=== PATIENT | male | born 1950 | race Caucasian/White ===

== ENCOUNTER 2021-07-01 06:48 | Outpatient (CLI) | payer MEDICARE, SELFPAY ==
[2021-07-01 07:34] LABS: Hemoglobin A1C 6.9 % (<5.7)
[2021-07-01 08:45] LABS: LDL Cholesterol Direct 140 mg/dL
[2021-07-01 08:50] LABS: Alanine Aminotransferase 22 U/L (4-50); Albumin Level 4.8 g/dL (3.5-5.1); Alkaline Phosphatase 97 U/L (38-126); Anion Gap 6 mmol/L (8-16); Aspartate Amino Transferase 26 U/L (17-59); Bilirubin,Total 0.9 mg/dL (0.2-1.3); Blood Urea Nitrogen 21 mg/dL (9-20); Calcium 9.5 mg/dL (8.4-10.2); Carbon Dioxide 24 mmol/L (22-30); Chloride 107 mmol/L (98-107); Cholesterol 247 mg/dL (0-200); Estimated Glomerular Filt Rate > 60; HDL Direct 31 mg/dL; Potassium 4.7 mmol/L (3.4-5.0); Sodium 137 mmol/L (137-145); Triglycerides 224 mg/dL (<150)
[2021-07-01 08:51] LABS: Glucose 138 mg/dL (65-110)
[2021-07-01 08:58] LABS: Prostate Specific Antigen 6.4 ng/mL (< OR = 4.0)
== END 2021-07-01 06:49 | disposition home or self-care (01) ==
LOC: ANHLAB 06:53
PROVIDERS: PCP Internal Medicine; Visit Provider Internal Medicine
DX: E11.9 Type 2 diabetes mellitus without complications (principal); I10 Essential (primary) hypertension; E78.5 Hyperlipidemia, unspecified; Z12.5 Encounter for screening for malignant neoplasm of prostate
CPT/HCPCS: 36415; 80053; 80061; 83036; 84153; G0103

== ENCOUNTER 2021-12-31 06:48 | Outpatient (CLI) | payer MEDICARE, SELFPAY ==
[2021-12-31 08:26] LABS: Alanine Aminotransferase 31 U/L (4-50); Albumin Level 4.7 g/dL (3.5-5.1); Alkaline Phosphatase 100 U/L (38-126); Anion Gap 8 mmol/L (8-16); Aspartate Amino Transferase 24 U/L (17-59); Bilirubin,Total 1.1 mg/dL (0.2-1.3); Blood Urea Nitrogen 21 mg/dL (9-20); Calcium 9.1 mg/dL (8.4-10.2); Carbon Dioxide 27 mmol/L (22-30); Chloride 103 mmol/L (98-107); Cholesterol 218 mg/dL (0-200); Estimated Glomerular Filt Rate > 60; Glucose 143 mg/dL (65-110); HDL Direct 31 mg/dL; Sodium 138 mmol/L (137-145); Triglycerides 263 mg/dL (<150)
[2021-12-31 08:36] LABS: LDL Cholesterol Direct 126 mg/dL
[2021-12-31 08:43] LABS: Hemoglobin A1C 6.6 % (<5.7)
== END 2021-12-31 06:49 | disposition home or self-care (01) ==
LOC: ANHLAB 06:49
PROVIDERS: PCP Internal Medicine; Visit Provider Internal Medicine
DX: E11.9 Type 2 diabetes mellitus without complications (principal); I10 Essential (primary) hypertension; E78.5 Hyperlipidemia, unspecified
CPT/HCPCS: 36415; 80053; 80061; 83036

== ENCOUNTER 2022-05-22 06:47 | Outpatient (CLI) | payer MEDICARE, SELFPAY ==
[2022-05-27 20:58] LABS: PSA, Total 6.4 ng/mL (<=4.0); Percent Free Prostate Spec Ag 20 % (>25)
== END 2022-05-22 06:48 | disposition home or self-care (01) ==
LOC: ANHLAB 06:49
PROVIDERS: PCP Internal Medicine; Visit Provider Urology
DX: N40.1 Benign prostatic hyperplasia with lower urinary tract symptoms (principal)
CPT/HCPCS: 36415; 84153; 84154

== ENCOUNTER 2022-07-08 06:46 | Outpatient (CLI) | payer MEDICARE, SELFPAY ==
[2022-07-08 07:51] LABS: Creatinine Urine 210.7 mg/dL
[2022-07-08 07:56] LABS: MALB Creatinine Ratio 26.8 mg/g (0-30); Microalbumin Urine Random 56.5 mg/L (0-16.7)
[2022-07-08 10:28] LABS: Hemoglobin A1C 5.8 % (<5.7)
[2022-07-08 11:35] LABS: Alanine Aminotransferase 26 U/L (6-50); Albumin Level 4.8 g/dL (3.5-5.1); Alkaline Phosphatase 62 U/L (38-126); Anion Gap 15 mmol/L (8-16); Aspartate Amino Transferase 24 U/L (17-59); Blood Urea Nitrogen 17 mg/dL (9-20); Calcium 9.9 mg/dL (8.4-10.2); Carbon Dioxide 22 mmol/L (22-30); Chloride 105 mmol/L (98-107); Cholesterol 277 mg/dL (0-200); Estimated Glomerular Filt Rate > 60; Glucose 103 mg/dL (65-110); HDL Direct 33 mg/dL; Potassium 5.6 mmol/L (3.4-5.0); Sodium 142 mmol/L (137-145); Triglycerides 169 mg/dL (<150)
[2022-07-08 11:47] LABS: LDL Cholesterol Direct 191 mg/dL
[2022-07-08 12:29] LABS: Prostate Specific Antigen 7.2 ng/mL (< OR = 4.0)
== END 2022-07-08 06:47 | disposition home or self-care (01) ==
PROVIDERS: PCP Internal Medicine; Visit Provider Internal Medicine
DX: E78.5 Hyperlipidemia, unspecified (principal); E11.9 Type 2 diabetes mellitus without complications; N40.0 Benign prostatic hyperplasia without lower urinary tract symptoms
CPT/HCPCS: 36415; 80053; 80061; 82043; 83036; 84153

== ENCOUNTER 2023-03-25 06:45 | Outpatient (CLI) | payer MEDICARE, SELFPAY ==
[2023-03-25 07:51] LABS: Alanine Aminotransferase 25 U/L (6-50); Albumin Level 4.8 g/dL (3.5-5.1); Alkaline Phosphatase 68 U/L (38-126); Anion Gap 8 mmol/L (8-16); Aspartate Amino Transferase 24 U/L (17-59); Bilirubin,Total 1.1 mg/dL (0.2-1.3); Blood Urea Nitrogen 27 mg/dL (9-20); Calcium 9.1 mg/dL (8.4-10.2); Carbon Dioxide 26 mmol/L (22-30); Chloride 105 mmol/L (98-107); Cholesterol 260 mg/dL (0-200); Estimated Glomerular Filt Rate > 60; Glucose 120 mg/dL (65-110); HDL Direct 28 mg/dL; Potassium 4.1 mmol/L (3.4-5.0); Sodium 139 mmol/L (137-145); Triglycerides 154 mg/dL (<150)
[2023-03-25 08:02] LABS: LDL Cholesterol Direct 183 mg/dL
[2023-03-25 12:08] LABS: Hemoglobin A1C 5.6 % (<5.7)
== END 2023-03-25 06:46 | disposition home or self-care (01) ==
PROVIDERS: PCP Internal Medicine; Visit Provider Internal Medicine
DX: E11.9 Type 2 diabetes mellitus without complications (principal); I10 Essential (primary) hypertension; E78.5 Hyperlipidemia, unspecified
CPT/HCPCS: 36415; 80053; 80061; 83036

== ENCOUNTER 2023-10-07 06:32 | Outpatient (CLI) | payer MEDICARE, SELFPAY ==
[2023-10-07 09:04] LABS: Hemoglobin A1C 5.9 % (<5.7)
[2023-10-07 09:06] LABS: Alanine Aminotransferase 33 U/L (6-50); Albumin Level 4.8 g/dL (3.5-5.1); Alkaline Phosphatase 74 U/L (38-126); Anion Gap 10 mmol/L (8-16); Aspartate Amino Transferase 26 U/L (17-59); Blood Urea Nitrogen 19 mg/dL (9-20); Calcium 9.5 mg/dL (8.4-10.2); Carbon Dioxide 26 mmol/L (22-30); Chloride 105 mmol/L (98-107); Cholesterol 297 mg/dL (0-200); Estimated Glomerular Filt Rate > 60; Glucose 144 mg/dL (65-110); HDL Direct 32 mg/dL; Potassium 4.1 mmol/L (3.4-5.0); Sodium 141 mmol/L (137-145); Triglycerides 252 mg/dL (<150)
[2023-10-07 09:19] LABS: LDL Cholesterol Direct 178 mg/dL
[2023-10-07 09:33] LABS: Prostate Specific Antigen 6.3 ng/mL (< OR = 4.0)
== END 2023-10-07 06:33 | disposition home or self-care (01) ==
PROVIDERS: PCP Family Medicine; Visit Provider Nurse Practitioner
DX: E78.5 Hyperlipidemia, unspecified (principal); R97.20 Elevated prostate specific antigen [PSA]; E11.9 Type 2 diabetes mellitus without complications
CPT/HCPCS: 36415; 80053; 80061; 83036; 84153

== ENCOUNTER 2024-01-12 03:31 | Day surgery (SDC) | payer MEDICARE, SELFPAY ==
[2023-12-21 09:08] VITALS: BMI 27.6
--- NOTE | 2024-01-08 13:57 | SUR.PREOP ---
Patient called regarding upcoming procedure. Reviewed preop instructions, appointment times, and procedure prep. pt denies any additional questions.
[2024-01-12 06:15] VITALS: BP 156/97; PULSE 92; RESP 16; TEMP 36.3; O2SAT 99; BMI 27.8
[2024-01-12] MEDS: LACTATED RINGERS 1,000 ML 150 ML IV CONT (06:36)
--- NOTE | 2024-01-12 06:51 | WPDANESEPPF ---
Anes - Initial Pre Proc Eval Procedure: Operation Date: 01/12/24 07:30 Proposed Procedures p Screening Colonoscopy - Gary Mata MD Date/Time: 01/12/24 06:51 Surgeon: Gary Mata MD Pre Op Diagnosis: neoplasm screening Patient Data Age: 73 Gender: M Height: 1.88 m Weight: 98.4 kg Last Vital Signs Temp 36.3 C L 01/12/24 06:15 Pulse 92 01/12/24 06:15 Resp 16 01/12/24 06:15 BP 156/97 H 01/12/24 06:15 Pulse Ox 99 01/12/24 06:15 O2 Del Method Room Air 01/12/24 06:15 Allergies Allergy/AdvReac Type Severity Reaction Status Date / Time Antihistamines - Alkylamine Allergy Intermediate Hives Verified 01/12/24 06:25 hydrochlorothiazide Allergy Intermediate Rash Verified 01/12/24 06:25 lisinopril Allergy Intermediate Itching Verified 01/12/24 06:25 losartan Allergy Unknown Itching Verified 01/12/24 06:25 Penicillins Allergy Unknown Rash Verified 01/12/24 06:25 Sulfa (Sulfonamide Allergy Unknown Rash Verified 01/12/24 06:25 Antibiotics) finasteride AdvReac Intermediate SINUS Verified 01/12/24 06:25 ISSUES DIPHENHYDRAMINE HCL Allergy Unknown RASH/HIVES Uncoded 01/12/24 06:25 Home Medications Medication Instructions Recorded Confirmed Type diazepam 5 mg tablet 5 mg PO .complex PRN flying phobia 10/20/23 01/12/24 Rx #10 tabs Patient hx anesthesia problems: none Family hx anesthesia problems: none Results Review: All pre-operative results and documents have been reviewed as part of the pre-operative evaluation. [facility] Surgical History Surgical History (Updated 01/12/24 @ 06:52 by Dustin Simon MD) H/O colonoscopy Family History Family History Mother Hypertension Father Family history of congestive heart failure Patient's father is Sibling Patient's brother is in good health Patient's sister is Other Diabetes mellitus Family history of cardiovascular disease Social History Social History Smoking packs per day: 1 Smoking cigarettes per day: 20.0 Years smoked: 8 Smoking pack-years: 8.00 Smoking status: Former smoker Tobacco type: cigarettes Smoking end date: 11/16/78 Alcohol intake: current Alcohol use details: rare Substance use: never Substance use type: does not use Living arrangements: with family Spiritual care concerns: No Anes - Eval Final PreProcedure Day of Procedure 01/12/24 06:51 Patient weight: overweight Heart: regular rate and rhythm Lungs: clear to auscultation Airway: Mallampati scale class 1 Neurological: alert and oriented Last oral intake: >/= 8 hours ASA classification: II Emergent: no Anesthetic plan: proceed Anesthesia type and monitoring: general GIVS and standard monitoring Results Review: All pre-operative results and documents have been reviewed as part of the pre-operative evaluation. Informed Consent: The patient's anesthetic plan and its attendant risks and benefits were discussed with the patient/family/POA. Questions were solicited and answers provided to the satisfaction of the patient/family/POA.
--- NOTE | 2024-01-12 07:46 | PM.HPGS ---
History of Present Illness History of Present Illness Consent: Risks, benefits, and alternatives have been discussed and questions answered. Patient agrees to proceed with procedure. Chief complaint: neoplasm screening Narrative: Jose Man is a 73 year old male with colon polyp 7 years ago Review of Systems Constitutional: Constitutional: Denies headache(s) and Denies weakness Eyes: Eyes: Denies blurry vision ENT: Reports Normal hearing present, Denies headache(s) and Denies neck pain Cardiovascular: Cardiovascular: Denies chest pain and Denies dyspnea Respiratory: Respiratory: Denies dyspnea Gastrointestinal: Gastrointestinal: Reports no additional gastrointestinal complaints Genitourinary: Genitourinary: Denies dysuria Musculoskeletal: Musculoskeletal: Denies neck pain Integumentary/Breasts: Skin/Breast: Denies dry skin Neurologic: Reports Normal hearing present, Denies headache(s) and Denies weakness Psychiatric: Psychiatric: Denies anxiety Endocrine: Endocrine: Denies change in body appearance Hematologic/Lymphatic: Hematologic/Lymphatic: Denies easy bleeding Allergic/Immunologic: Allergic/Immunologic: Denies urticaria PMFSH Surgical History Surgical History (Updated 01/12/24 @ 06:52 by Dustin Simon MD) H/O colonoscopy Family History Family History Mother Hypertension Father Family history of congestive heart failure Patient's father is Sibling Patient's brother is in good health Patient's sister is Other Diabetes mellitus Family history of cardiovascular disease Social History Social History Smoking packs per day: 1 Smoking cigarettes per day: 20.0 Years smoked: 8 Smoking pack-years: 8.00 Smoking status: Former smoker Tobacco type: cigarettes Smoking end date: 11/16/78 Alcohol intake: current Alcohol use details: rare Substance use: never Substance use type: does not use Living arrangements: with family Spiritual care concerns: No Meds Home Medications and Allergies Home Medications Medication Instructions Recorded Confirmed Type diazepam 5 mg tablet 5 mg PO .complex PRN flying phobia 10/20/23 01/12/24 Rx #10 tabs Allergies Allergy/AdvReac Type Severity Reaction Status Date / Time Antihistamines - Alkylamine Allergy Intermediate Hives Verified 01/12/24 06:25 hydrochlorothiazide Allergy Intermediate Rash Verified 01/12/24 06:25 lisinopril Allergy Intermediate Itching Verified 01/12/24 06:25 losartan Allergy Unknown Itching Verified 01/12/24 06:25 Penicillins Allergy Unknown Rash Verified 01/12/24 06:25 Sulfa (Sulfonamide Allergy Unknown Rash Verified 01/12/24 06:25 Antibiotics) finasteride AdvReac Intermediate SINUS Verified 01/12/24 06:25 ISSUES DIPHENHYDRAMINE HCL Allergy Unknown RASH/HIVES Uncoded 01/12/24 06:25 Vital Signs Vital Signs - 24 hr 01/12/24 06:15 Temperature 97.3 F L Pulse Rate 92 Respiratory Rate 16 Blood Pressure 156/97 H Pulse Oximetry 99 Oxygen Delivery Room Air Exam Const: General: comfortable and no acute distress HENMT: Face/Nose/Sinus: Normal nares present Eyes: General: appearance normal, both eyes and all related structures Neck: Neck: no JVD Resp: Auscultation: clear to auscultation bilaterally Cardio: Rate: regular rate Rhythm: regular rhythm GI: Inspection: non-distended GI Palp: Yes Soft to palpation Skin: General skin exam: normal color Neuro: General: gait normal Speech: normal speech Extrem: General: normal to inspection Psych: Mental Status: mental status grossly normal Assessment and Plan Assessment and plan (1) Screening for colon cancer: Code(s): Z12.11 - Encounter for screening for malignant neoplasm of colon Status: Acute Assessment and Plan: colonoscopy
[2024-01-12 08:11] VITALS: BP 122/75; PULSE 69; RESP 20; O2SAT 99
[2024-01-12 08:21] VITALS: BP 137/89; PULSE 72; RESP 20; O2SAT 96
[2024-01-12 08:31] VITALS: BP 120/78; PULSE 68; RESP 20; O2SAT 97
== END 2024-01-12 08:31 | disposition home or self-care (01) ==
PROVIDERS: PCP Nurse Practitioner; Visit Provider Internal Medicine Gastroenterology
PROC: 0DJD8ZZ Inspection of Lower Intestinal Tract, Via Natural or Artificial Opening Endoscopic (ICD-10-PCS; CPT 45378; principal; 2024-01-12 07:30)
DX: Z12.11 Encounter for screening for malignant neoplasm of colon (principal); K57.30 Diverticulosis of large intestine without perforation or abscess without bleeding; K64.8 Other hemorrhoids; Z87.891 Personal history of nicotine dependence
CPT/HCPCS: G0121; J2704; J7120

== ENCOUNTER 2024-10-18 06:38 | Outpatient (CLI) | payer MEDICARE, SELFPAY ==
[2024-10-18 08:28] LABS: Hematocrit 48.4 % (42.0-52.0); Hemoglobin 16.5 g/dL (14.0-18.0); Mean Corpuscular HGB Conc 34.1 g/dl (32-36); Mean Corpuscular Hemoglobin 29.5 pg (26-34); Mean Corpuscular Volume 86.6 fl (80-100); Mean Platelet Volume 11.4 fl (7.4-10.4); Platelet Count Result 237 k/mm3 (150-375); Red Blood Count 5.59 M/mm3 (4.6-6.20); Red Cell Distribution Width 13.5 % (11.5-14.5); White Blood Count 7.3 K/mm3 (4.5-10.0)
[2024-10-18 08:44] LABS: Alanine Aminotransferase 28 U/L (6-50); Albumin Level 4.7 g/dL (3.5-5.1); Alkaline Phosphatase 80 U/L (38-126); Anion Gap 6 mmol/L (4-12); Aspartate Amino Transferase 24 U/L (17-59); Blood Urea Nitrogen 24 mg/dL (9-20); Calcium 9.3 mg/dL (8.4-10.2); Carbon Dioxide 27 mmol/L (22-30); Chloride 107 mmol/L (98-107); Cholesterol 302 mg/dL (0-200); Estimated Glomerular Filt Rate > 60; Glucose 148 mg/dL (65-110); HDL Direct 31 mg/dL; Potassium 4.1 mmol/L (3.4-5.0); Sodium 140 mmol/L (137-145); Triglycerides 282 mg/dL (<150)
[2024-10-18 08:54] LABS: LDL Cholesterol Direct 185 mg/dL
[2024-10-18 09:08] LABS: Hemoglobin A1C 6.4 % (<5.7)
[2024-10-19 07:33] LABS: Prostate Specific Antigen 5.7 ng/mL (< OR = 4.0)
== END 2024-10-18 06:39 | disposition home or self-care (01) ==
PROVIDERS: PCP Nurse Practitioner; Visit Provider Nurse Practitioner
DX: E78.49 Other hyperlipidemia (principal); E78.5 Hyperlipidemia, unspecified; E11.9 Type 2 diabetes mellitus without complications; Z12.5 Encounter for screening for malignant neoplasm of prostate
CPT/HCPCS: 36415; 80053; 80061; 83036; 84153; 84443; 85027; G0103

== ENCOUNTER 2025-10-19 06:50 | Outpatient (CLI) | payer MEDICARE, SELFPAY ==
--- OUTSIDE RECORDS SUMMARY | 2025-10-19 06:54 | XMS_ITS | Clinical Summary ---
Author Organization [facility] Address [address], [facility] [address] [place] [address] Phone Care Team Providers Care Bin Operator Name Role Phone Yeyo Tapia MD Primary Care Provider [phone] Gabriele Thorpe DO Unavailable [phone] Allergies Active Allergy Reactions Criticality Noted Date Comments Antihistamines, Loratadine-Type Unknown 03/18 Propoxyphene Unknown 04/15/2017 Penicillins Unknown 04/15/2017 Sulfa Antibiotics Unknown 04/15/2017 Medications polyethylene glycol (MIRALAX) Powder Use entire 255g bottle with 64oz of clear liquid as directed for colonoscopy prep. 255 g 0 7 Active terbinafine (LAMISIL) 250 MG Tablet Take 1 Tab by mouth daily. 2 7 Active Immunizations Immunization Administration Dates Next Due Covid-19, Mrna, Lnp-s, Pf, 30 Mcg/0.3 Ml Dose (P fizer) 02/07/2021,01/17/2021 Family History Medical History Relation Name Comments Congestive Heart Failure Father Diabetes Father Hypertension Father Heart Attack Mother x2 Hypertension Mother Relation Name Status Comments Father Mother Social History Tobacco Use Types Packs/Day Years Used Date Smoking Tobacco: Former Cigarettes 1 9 0 06/23/1969 - 06/23/1978 Smokeless Tobacco: Never Alcohol Use Standard Drinks/Week Comments Yes 0 (1 standard drink = 0.6 oz pur e alcohol) 2 drinks per month Sex and Gender Information Value Date Recorded Sex Assigned at Not on file Legal Sex Male 2:40 PM [employer] Gender Identity Not on file Sexual Orientation Not on file Plan of Treatment Health Maintenance Due Date Last Done Comments Hepatitis C Virus (HCV) Screening 1950 TdaP Immunization 1950 Cologuard 1995 Immunochemical Fecal Occult Blood 1995 Colonoscopy 04/09/2022 04/09/2017 Colorectal Cancer Screening 04/09/2022 Influenza Immunization (#1) 07/17/202508/17, 08/15/2019, 07/26/2018, Additional history exists SARS-COV-2 Immunization (2024- season) 2025 09/12/2021, 02/07/2021, 01/17/2021 Respiratory Syncytial Virus (RSV) Immunization (Adult) (1 - 1-dose 75+ series) 2025 Pneumococcal Immunization (50+ years) Completed 02/11/2017, 02/10/2016 Pneumococcal Immunization Combined Discontinued 02/11/2017, 02/10/2016 Zoster Immunization Completed 11/02/2018, 8 Hepatitis B Immunization Aged Out No longer eligible based on patient's age to complete this topic Human Papillomavirus (HPV) Immunization Aged Out No longer eligible based on patient's age to complete this topic Meningococcal Immunization (ACWY) Aged Out No longer eligible based on patient's age to complete this topic Rotavirus Immunization Aged Out No lo nger eligible based on patient's age to complete this topic Procedures Procedure Name Priority Date/Time Associated Diagnosis Comments COLONOSCOPY Routine 04/09/2017 from Last 3 Months or Most Recently Relevant to Health Maintenance Results * COLONOSCOPY (04/09/2017) Yeyo Tapia MD PROCEDURE/MINOR SURGICAL ORDER LATONYA Edited Result - Final from Last 3 Months or Most Recently Relevant to Health Maintenance Care Teams Bin Operator Relationship Specialty Start Date End Date Yeyo Tapia MD [address] [place] [address] PCP - General Internal Medicine 12/12/16 Gabriele Thorpe DO [address] [place] [address] Consulting Physician Gastroenterology 04/09/17
[2025-10-19 07:17] LABS: Hematocrit 47.7 % (42.0-52.0); Hemoglobin 16.6 g/dL (14.0-18.0); Mean Corpuscular HGB Conc 34.8 g/dl (32-36); Mean Corpuscular Hemoglobin 29.2 pg (26-34); Mean Corpuscular Volume 84.0 fl (80-100); Platelet Count Result 236 k/mm3 (150-375); Red Blood Count 5.68 M/mm3 (4.6-6.20); White Blood Count 7.9 K/mm3 (4.5-10.0)
[2025-10-19 07:49] LABS: Alanine Aminotransferase 32 U/L (6-50); Albumin Level 4.8 g/dL (3.5-5.1); Alkaline Phosphatase 105 U/L (38-126); Anion Gap 10 mmol/L (4-12); Aspartate Amino Transferase 28 U/L (17-59); Bilirubin,Total 1.1 mg/dL (0.2-1.3); Blood Urea Nitrogen 22 mg/dL (9-20); Calcium 9.4 mg/dL (8.4-10.2); Carbon Dioxide 23 mmol/L (22-30); Chloride 103 mmol/L (98-107); Cholesterol 312 mg/dL (0-200); Estimated Glomerular Filt Rate > 60; Glucose 298 mg/dL (65-110); HDL Direct 33 mg/dL; Potassium 4.0 mmol/L (3.4-5.0); Sodium 136 mmol/L (137-145); Total Protein 8.4 g/dL (6.3-8.2); Triglycerides 304 mg/dL (<150)
[2025-10-19 07:58] LABS: Prostate Specific Antigen 7.9 ng/mL (< OR = 4.0)
== END 2025-10-19 06:51 | disposition home or self-care (01) ==
LOC: ANHLAB 06:52
PROVIDERS: PCP Nurse Practitioner Family; Referring Provider Nurse Practitioner Family; Visit Provider Internal Medicine
DX: Z12.5 Encounter for screening for malignant neoplasm of prostate (principal); I10 Essential (primary) hypertension; R97.20 Elevated prostate specific antigen [PSA]; N40.0 Benign prostatic hyperplasia without lower urinary tract symptoms; N52.9 Male erectile dysfunction, unspecified; E78.49 Other hyperlipidemia; E66.3 Overweight; F41.8 Other specified anxiety disorders; E11.9 Type 2 diabetes mellitus without complications; E78.5 Hyperlipidemia, unspecified
CPT/HCPCS: 36415; 80053; 80061; 84153; 85027